=== PATIENT | male | born 1975 ===

== ENCOUNTER 2025-08-08 10:46 | Outpatient (AMB) | payer OTHER, SELFPAY ==
--- NOTE | 2025-08-08 11:00 | A.OFFVIS_ITS ---
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 The pain began approximately five years ago and radiates down the upper arms, significantly affecting his sleep and daily activities. The pain worsens throughout the day and is exacerbated by movement. The patient was diagnosed with costochondritis four years ago, which has persisted despite treatment efforts. He experiences burning sensations in his extremities and pain in the pectoral muscles and chest, raising concerns about cardiac health. He reports the presence of persistent knots in the neck and back, which have spread throughout his body, causing headaches and a sensation of tightness. These knots are described as pea-sized lumps that do not resolve, contributing to a constant state of discomfort. The patient has a history of frozen shoulder on the left side, treated with a single injection in 2019, but continues to experience similar symptoms. He has not received significant relief from previous medical consultations, including rheumatology and osteopathy evaluations. He has been engaged in physical therapy, which has acknowledged the presence of these knots, but no substantial improvement has been noted. The patient has also tried yoga and stretching exercises without significant benefit. He has a history of hypertension, managed with losartan, and previously experienced vitamin D deficiency, which temporarily improved cognitive symptoms. Pain Description - Onset: Pain began approximately five years ago. - Quality: Described as knots and burning sensations. - Location: Neck, upper back, radiating to upper arms. - Exacerbating factors: Movement worsens the pain. - Impact: Affects sleep and daily activities. Physical Exam - Musculoskeletal: Tenderness noted in the neck and shoulder regions with palpable taut muscle bands. Results - EMG: Previously performed but not available for review. Pain Management - Affect: Pain impacts mood and causes frustration. - Analgesia: No current pain medications mentioned. - Activities of Daily Living: Pain interferes with sleep and daily activities. - Aberrant Drug Related Behaviors: No signs of medication misuse reported. [facility] Medical History (Updated 08/08/25 @ 11:56 by Lopez Cintron MD) Paresthesia Costal chondritis Multiple joint pain Hypertension Hyperlipidemia Vitamin D deficiency Myalgia Physical Exam Vital Signs: Last Vital Signs Pulse 82 08/08/25 11:01 Resp 16 08/08/25 11:01 BP 130/72 08/08/25 11:01 Pulse Ox 98 08/08/25 11:01 Oxygen Delivery Method Room Air 08/08/25 11:01 BMI result Body Mass Index 26.3 Assessment & Plan Assessment & Plan (1) Fatigue: Code(s): R53.83 - Other fatigue Category: Medical (2) Cervical radiculitis: Code(s): M54.12 - Radiculopathy, cervical region Category: Medical Plan Plan Patient was informed and verbally consented to the use of an ambient scribe for clinic note documentation during this visit. 1. Cervical Radiculitis - Plan to initiate physical therapy for the neck to address symptoms. - Consideration for MRI after two months of physical therapy if symptoms persist. 2. Costochondritis - No specific plan discussed during the visit. 3. Frozen Shoulder - No specific plan discussed during the visit. 4. Hypertension - Continue management with losartan. 5. Vitamin D Deficiency - No specific plan discussed during the visit. Testosterone level ordered. Discussion Notes I discussed with the patient the need for physical therapy to address cervical radiculitis symptoms, with a follow-up MRI if symptoms persist after two months. We also talked about the potential use of dry needling and massage therapy as adjunct treatments. The patient expressed interest in exploring further testing for Lyme disease, and I agreed to facilitate this. Patient Instructions - Begin physical therapy for neck pain as prescribed. - Consider trying dry needling and massage therapy. - Follow up in two months for reassessment and possible MRI. - Continue taking losartan for blood pressure management. - Discuss any new or worsening symptoms with your healthcare provider. Orders: Orders Lyme IgG/IgM w/reflex to WB 08/08/25 M79.10 - Myalgia, unspecified site Testosterone, Total 08/08/25 R53.83 - Other fatigue PT Evaluation and Treatment 08/08/25 M54.12 - Radiculopathy, cervical region Coding Level of Care Code New Pt Level 4 (15958) Diagnoses Fatigue R53.83 Cervical radiculitis M54.12
[2025-08-08 11:01] VITALS: BP 130/72; PULSE 82; RESP 16; O2SAT 98; BMI 26.3
== END 2025-08-08 12:29 | disposition home or self-care (01) ==
PROVIDERS: Visit Provider Internal Medicine
DX: R53.83 Other fatigue (principal); M54.12 Radiculopathy, cervical region
CPT/HCPCS: 99204

== ENCOUNTER → 2025-08-08 10:46 | Outpatient (BNVA) | payer OTHER, SELFPAY | PROVIDERS: Visit Provider Internal Medicine | DX: M54.12 Radiculopathy, cervical region (principal); I10 Essential (primary) hypertension; E55.9 Vitamin D deficiency, unspecified; M94.0 Chondrocostal junction syndrome [Tietze]; R53.83 Other fatigue | CPT/HCPCS: 99202 ==